=== PATIENT | female | born 1955 | race Caucasian/White ===

== ENCOUNTER → 2016-09-19 | Outpatient (CLI) | payer OTHER ==
--- NOTE | ~2016-09-19 | CT3 ---
[facility] A Service of [facility] RADIOLOGY TEXT RESULTS PATIENT: JOSELINE LEONE LOCATION: [facility] : 51 UNIT #: [id number] AGE: [address]: Tr Lilly MD SEX: F ORDER DR: [id number] [facility] [address] [place], [place] [address] [id number] O MR#: [id number] Acc #: [id number] NAME: JOSELINE LEONE : 1955 SEX: F STUDY DATE/TIME: 09/19/2016 14:01 UNIT: [facility] ROOM: STUDY DESCRIPTION: CT Abd and Pelv WWo Cont Attending Physician: Tr Lilly M.D. Referring Physician: Tr Lilly M.D. Ordering Physician: Tr Lilly M.D. Primary Care Physician: Toyin Allison A.P.R.N. MEDICAL IMAGING REPORT This report is preliminary unless electronic signature is present EXAM CT abdomen and pelvis without and with contrast, 09/19/2016 1401 hours HISTORY 60-year-old woman with gross hematuria since urinary tract infection in July 2016. Now microscopic hematuria with left flank pain. COMPARISON None TECHNIQUE Helical noncontrasted images were obtained from the lung bases through the pubic symphysis. Postcontrast arterial phase and 90-second delayed phase images were obtained through the abdomen. 5-minute delayed postcontrast images were obtained through the abdomen and pelvis. Sagittal and coronal reconstructions of the delayed series were performed. Contrast was Isovue-370, 100 mL IV. Total exam dl PA 2698 mGy-cm. This CT exam was performed with one or more of the following radiation dose reduction techniques: automatic exposure control, adjustment of mA and/or kV according to patient size, and iterative reconstruction. FINDINGS Images through the lung bases are clear. There are no effusions. Precontrast images through the abdomen demonstrate no renal or ureteral calculi. No gallstones are seen. Multiphase imaging demonstrates several benign hepatic cysts in the right lobe and left lobe which are small. There is no suspicious liver lesion. The spleen, pancreas, gallbladder, bile ducts and adrenal glands are within normal limits. There is mild thickening of the left adrenal gland likely benign hyperplasia. [facility] A Service of [facility] RADIOLOGY TEXT RESULTS PATIENT: JOSELINE LEONE LOCATION: [facility] : 51 UNIT #: [id number] AGE: [address]: Tr Lilly MD SEX: F ORDER DR: The right kidney demonstrates a 1.2 cm cyst in the anterior mid-right kidney measuring only 19 Hounsfield units postcontrast. This measures 7 Hounsfield units precontrast. There is a slightly larger low-density lesion in the lateral lower pole right kidney measuring 1.9 cm and 3.5 Hounsfield units postcontrast, 5 Hounsfield units precontrast. No cysts or lesions are seen in the left kidney. There is symmetric excretion into nondilated renal collecting systems which follow a normal course to the bladder. The bladder is only partially filled with contrast on the delayed phase images. No definite bladder lesion is seen. There is a ureteral jet on the right side. The stomach is contracted but normal in appearance. There is no small bowel lesion. The terminal ileum, cecum and appendix are normal. There is no colonic wall thickening. There are colonic diverticula in the sigmoid colon. The uterus is surgically absent. There is no adnexal mass or free fluid. A few pelvic phleboliths are present. Bone window images demonstrate mild endplate degenerative changes in the lumbar spine. There is no fracture. IMPRESSION 1. There are no renal or ureteral calculi. No bladder stones seen. 2. There is a simple cyst in the lower pole right kidney measuring 1.9 cm and only 3 Hounsfield units postcontrast, 5 Hounsfield units precontrast 3. There is a smaller lesion in the anterior mid-right kidney which measures 7 Hounsfield units precontrast and 19 Hounsfield postcontrast and is unchanged on the delayed phase images and is likely a second simple cyst. No lesions are seen in the left kidney. 4. The bladder is only partially opacified on the delayed phase images. A ureteral jet is seen on the right side. No definite left ureteral jet is seen which is likely due to differences in peristalsis. 5. Sigmoid diverticulosis without evidence of diverticulitis. Dictated by... Pam Amezcua M.D. THIS IS AN ELECTRONICALLY VERIFIED REPORT Pam Amezcua M.D. at 09/20/2016 5:51 PM Sherie TD: 09/20/2016 14:42 JOB #: [id number] MEDICAL IMAGING REPORT Page 1 of 1 COPY
[2016-09-19 13:51] LABS: POC - CREATININE 0.83 mg/dL (0.44-1.03); POC - GFR >60.0 mL/min (>60)
== END | disposition home or self-care (01) ==
LOC: CCAT 13:23
PROVIDERS: Urology
DX: R31.0 Gross hematuria (principal); N28.1 Cyst of kidney, acquired; K57.30 Diverticulosis of large intestine without perforation or abscess without bleeding; N28.89 Other specified disorders of kidney and ureter
CPT/HCPCS: 74178; 82565; Q9967